=== PATIENT | female | born 1995 | race Caucasian/White ===

== ENCOUNTER 2020-12-25 09:36 | Emergency (ER) | payer SELFPAY ==
[2020-12-25 09:45] VITALS: BP 126/80; PULSE 88; RESP 16; TEMP 36.5; O2SAT 99
--- NOTE | 2020-12-25 10:25 | ED.URI ---
HPI - URI/Sore Throat General Chief Complaint: Upper Respiratory Infection Stated Complaint: SINUS INFECTION Time Seen by Provider: 12/25/20 10:15 Source: patient and RN notes reviewed Mode of arrival: ambulatory Limitations: no limitations History of Present Illness HPI Narrative: Patient presents today with a 2-day history of sinus pressure, postnasal drip, ear pressure, subjective fever, bloody yellow nasal drainage. She believes she has a sinus infection. History of sinus surgery with turbinate reduction and septoplasty 3 years ago. She has been taking Sudafed with mild relief. States this is her first sinus infection since her surgery. No recent antibiotic use. MD elicited complaint: sinus pain Related Data Allergies Allergy/AdvReac Type Severity Reaction Status Date / Time No Known Allergies Allergy Mild Verified 12/25/20 10:23 Review of Systems Review of Systems: Narrative: CONSTITUTIONAL: Denies body aches, chills, or sweats. + Subjective fever EYES: Denies visual changes, redness, or discharge. ENT: Denies sore throat, or otalgia. + Sinus pressure, postnasal drip, ear pressure, nasal drainage CARDIOVASCULAR: Denies chest pain, palpitations, or edema. RESPIRATORY: Denies cough or dyspnea. GASTROINTESTINAL: Denies abdominal pain, nausea, vomiting, or diarrhea. GENITOURINARY: Denies dysuria or hematuria. SKIN: Denies rash, itching, or wounds. MUSCULOSKELETAL: Denies back pain, joint pain, or myalgia. NEUROLOGIC: Denies headache, numbness, tingling, or weakness. PSYCH: Denies depression or anxiety. [facility] Surgical History Surgical History (Updated 12/25/20 @ 10:28 by Safia Leon, [facility], ) History of sinus surgery Comments At time of signature, I have reviewed and agree with nursing past medical, surgical, social and family history unless otherwise noted. Please see nursing chart for further information. There is no relevant family history pertinent to the presenting complaint Exam Narrative: Exam Narrative: GENERAL: Well-appearing, well-nourished, and in no acute distress. HEAD: Normocephalic, atraumatic. EYES: EOMI. No redness or drainage. Conjunctivae normal. ENT: Mucous membranes pink and moist. Nares clear. No rhinorrhea. TMs normal bilaterally. Throat normal. Uvula midline. NECK: Normal AROM. Supple. No lymphadenopathy. CHEST: No respiratory distress. Clear to auscultation. HEART: Regular rate and rhythm. No murmur appreciated. Normal peripheral pulses. EXTREMITIES: Normal range of motion. No edema. SKIN: Warm, dry, no rash. Capillary refill normal. Normal skin turgor. NEURO: No focal deficits. Alert and oriented x3. Gait steady. PSYCH: Normal affect. No signs of depression or anxiety. Course Vital Signs Vital signs: Vital Signs Temperature 97.7 F 12/25/20 09:45 Pulse Rate 88 12/25/20 09:45 Respiratory Rate 16 12/25/20 09:45 Blood Pressure 126/80 12/25/20 09:45 Pulse Oximetry 99 12/25/20 09:45 Temperature 97.7 F 12/25/20 09:45 Pulse Rate 88 12/25/20 09:45 Respiratory Rate 16 12/25/20 09:45 Blood Pressure 126/80 12/25/20 09:45 Pulse Oximetry 99 12/25/20 09:45 Reviewed. Pt has been instructed to follow up with her PCP regarding her elevated blood pressure today. MDM - URI/Sore Throat Differential Diagnosis Differential diagnosis: Likely upper respiratory infection, otitis media, sinusitis and viral infection Critical Care Time Critical Care Time Critical Care Time: No Discharge Plan Discharge Clinical Impression: Sinusitis Qualifiers: Sinusitis location: unspecified location Chronicity: acute Recurrence: not specified as recurrent Qualified Code(s): J01.90 - Acute sinusitis, unspecified Patient Disposition: Home, Self-Care Condition: Stable Instructions: Antibiotic Form, Sinusitis (ED) Additional Instructions: Please take the amoxicillin as prescribed until gone. Continue your Sudafed. Follow-up with your PCP in 3 to 4 day
== END 2020-12-25 10:31 | disposition home or self-care (01) ==
PROVIDERS: Emergency Provider Nurse Practitioner
DX: J01.90 Acute sinusitis, unspecified (principal); R03.0 Elevated blood-pressure reading, without diagnosis of hypertension
CPT/HCPCS: 99213; G0463

== ENCOUNTER 2024-07-04 10:50 | Emergency (ER) | payer BC, SELFPAY ==
[2024-07-04 11:04] VITALS: BP 123/75; PULSE 66; RESP 16; TEMP 36.6; O2SAT 98
--- NOTE | 2024-07-04 12:17 | ED.SKABFB ---
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 She reports that she began using metal nipple Rendon about 1 week ago, now has a burning itchy rash to both nipples. She denies any injury or trauma. She voices no other concerns or complaints today. Related Data Home Medications Medication Instructions Recorded Confirmed sertraline 50 mg tablet mg 07/04/24 Allergies Allergy/AdvReac Type Severity Reaction Status Date / Time No Known Allergies Allergy Mild Verified 07/04/24 11:15 Review of Systems Review of Systems: All systems reviewed & are unremarkable except as noted in HPI and below Constitutional: Constitutional: Reports no additional constitutional complaints ENT: Reports system reviewed and no additional complaints, except as documented Cardiovascular: Cardiovascular: Reports no additional cardiovascular complaints Respiratory: Respiratory: Reports no additional respiratory complaints Gastrointestinal: Gastrointestinal: Reports no additional gastrointestinal complaints Integumentary/Breasts: Skin/Breast: Reports system reviewed and no additional complaints, except as docu and Reports as per HPI [facility] Surgical History Surgical History History of sinus surgery Comments At the time of my signature, I reviewed and agree with the nursing past medical, surgical, social, and family history. There is no relevant family history pertinent to the patient complaint. Exam Const: General: cooperative, no acute distress, alert and awake Orientation/consciousness: oriented to person, oriented to place and oriented to time HENMT: Head: normal to inspection Resp: Effort & Inspection: normal respiratory effort and able to speak in complete sentences Auscultation: clear to auscultation bilaterally, no crackles, no rales, no rhonchi and no wheezes Cardio: Palpation: normal PMI Rate: regular rate Rhythm: regular rhythm Heart sounds: S1 normal heart sound present and S2 normal heart sound present Skin: Rashes: rashes noted patches bilateral breast Neuro: General: oriented to person, oriented to place and oriented to time Cranial nerves: Yes CN's II-XII intact bilaterally Psych: Appearance: grossly normal Thought process: Normal thought process present Insight: Good insight present (Psych) Judgement: Good judgement present (Psych) Course Course Level of Care: Express Care Visit Vital Signs Vital signs: Vital Signs Temperature 97.9 F 07/04/24 11:04 Pulse Rate 66 07/04/24 11:04 Respiratory Rate 16 07/04/24 11:04 Blood Pressure 123/75 07/04/24 11:04 Pulse Oximetry 98 07/04/24 11:04 Oxygen Delivery Room Air 07/04/24 11:04 Temperature 97.9 F 07/04/24 11:04 Pulse Rate 66 07/04/24 11:04 Respiratory Rate 16 07/04/24 11:04 Blood Pressure 123/75 07/04/24 11:04 Pulse Oximetry 98 07/04/24 11:04 Oxygen Delivery Room Air 07/04/24 11:04 Reviewed MDM - Skin/Abscess/Foreign Bdy MDM Narrative Medical decision making narrative: Rash consistent with yeast dermatitis. Treat topically. Follow with primary care provider. Emergency department for new or worse symptoms. Discharge instructions reviewed with patient, as well as provided in writing per nursing staff. The instructions also include specific and strict return/GO TO THE ER as well as f/u information. All questions have been answered, and the patient deny any further questions with discharge and discharge plan. Some parts of this dictation were generated by voice recognition software and may contain typographical and/or grammatical inaccuracies. Differential Diagnosis Differential diagnosis: Likely cellulitis, eczema and contact dermatitis Medical Records Attestation: I reviewed the patient's medical records. Discharge Plan Discharge Clinical Impression: Yeast dermatitis Patient Disposition: Home, Self-Care Condition: Stable Instructions: Antibiotic Form, Skin Yeast Infection (ED) Additional Instructions: Use medications as prescribed. Follow with primary care provider. Emergency department for new or worse symptoms Patient Language: Frisian Prescriptions: New nystatin 100,000 unit/gram ointment 1 applic topical QID 14 Days Qty: 30 0RF No Action sertraline 50 mg tablet Follow-up/Referrals: PHYSICIAN,EMERGENCY MANAGEMENT CONSULTANT [Primary Care Provider] - Stand Alone Forms: Work/School Release IP Time of Disposition: 12:25
== END 2024-07-04 12:35 | disposition home or self-care (01) ==
PROVIDERS: Emergency Provider Nurse Practitioner Family
DX: B37.2 Candidiasis of skin and nail (principal)
CPT/HCPCS: 99213; G0463

== ENCOUNTER 2025-01-24 19:02 | Emergency (ER) | payer BC, SELFPAY ==
--- NOTE | ~2025-01-24 | CT_ITS ---
CT ANGIOGRAM NECK AND HEAD History: Headache. Technique: Axial noncontrast imaging of the brain was performed. Serial spiral axial images through t he head and neck were then obtained during arterial phase IV injection of 100 cc of Omnipaque 350. 3- D postprocessing and MIP images were then reconstructed on the remote workstation. Dose reduction kishore hnique was used on this scan by utilizing automated exposure control and iterative reconstruction kishore hnique. The dose-length product (DLP) was 1485.56 mGy-cm. CTA neck findings: Bilateral vertebral arteries are patent. Bilateral common carotid, internal carot id, and external carotid arteries are patent. No large vessel occlusion or stenosis. No aneurysm. The proximal right internal carotid artery demonstrates 0% stenosis relative to the normal distal artery lumen diameter. The proximal left internal carotid artery demonstrates 0% stenosis relative to the n ormal distal artery lumen diameter. CTA head findings: Distal vertebral arteries, basilar artery, and posterior cerebral arteries are pat ent. Distal internal carotid arteries, middle cerebral arteries, and anterior cerebral arteries are p atent. No large vessel occlusion or stenosis. No aneurysm. Axial noncontrast images of the brain is unremarkable. No acute infarct, intracranial hemorrhage or m ass lesion identified. No mass effect or midline shift. Palmer-white differentiation intact. Ventricles and subarachnoid spaces are normal. Paranasal sinuses and mastoid air cells are clear. Calvarium int act. Impression: Normal exam. Reviewed, dictated and finalized at location M. Impression: Normal exam.
--- NOTE | ~2025-01-24 | XR_ITS ---
XR chest 2V Ordering provider: Jarett Edgar MD History: 29 years Female with . cp . Comparison: March 17, 2017 FINDINGS: MEDIASTINUM: The cardiac silhouette is not enlarged. LUNGS: No infiltrates, effusions or pneumothorax. OTHER: No free air under the diaphragm. IMPRESSION: No acute cardiopulmonary pathology. Reviewed, dictated and finalized at location A.
--- NOTE | 2025-01-24 19:05 | ECG_ITS ---
Test Date: 2025-01-24 19:41:19 Measurements Intervals Mc[place]osh Rate: 115 P: 153 SC: 177 QRS: 140 QRSD: 92 T: -12 QT: 342 QTc: 475 Interpretive Statements SINUS TACHYCARDIA WITH OCCASIONAL VENTRICULAR PREMATURE COMPLEXES ARM LEADS REVERSED [INVERTED P AND QRS IN I] ABNORMAL RHYTHM ECG No previous ECG available for comparison Electronically Signed On 01-25-2025 12:41:15 CDT by Melchor Garcia M.D.
--- OUTSIDE RECORDS SUMMARY | 2025-01-24 19:05 | XMS_ITS | Clinical Summary ---
Author Organization [facility] [employer] Address [address] [place] [address] Care Team Providers Care Community Health Agent Name Role Phone Ike Marin MD Unavailable Ike Marin MD Unavailable Source Comments [facility],non-owned Affiliates and Associated Physician Practices is amultiple site organization consisting of ambulatory clinics and hospital sitesin [place], [place], [place] and [place]. This disclosure is being madepursuant to the Care Everywhere program and may not contain all information available regarding this patient. Last updated 18.[facility] [employer] Allergies No known active allergies Medications * Be aware that medications may not be up to date on this document. Alwaysverify current medications with the patient. Multiple Vitamins-Minera ls (MULTIVITAMIN GUMMIES WOMENS PO) Take 3 tablets by mouth once daily Active Multiple Vitamins-Minera ls (HAIR SKIN AND NAILS FORMULA PO) Take 2 tablets by mouth once daily Active busPIRone (BUSPAR) 10 MG tablet Take 1 (one) tablet by mouth 3 times daily as needed 30 tablet 4 05/21/2021 Active Fish Oil-Cholecalcif abraham (OMEGA-3 + VITAMIN D3 PO) Take 2 capsules by mouth once daily Active Active Problems Problem Noted Date Diagnosed Date H/O multiple concussions 02/01/2020 Gastroesophageal reflux disease without esophagi tis 02/01/2020 Generalized anxiety disorder 02/01/2020 Major Depression 02/01/2020 Immunizations Immunization Administration Dates Next Due DTaP VACCINE IM (6wk-6yrs) 11/12/1999,,07/09/1995,1994,03/06/1995 HEP B VACCINE, PED/ADOL 10/08/1995,01/28/1995, HIB VACCINE 03/19/1996, 5,05/07/1995,1994 Human Papilloma Virus Nine[place] lent Vaccine 12/05/2021,08/16/2021 MMR 11/12/2019,03/19/1996 POLIO IPV 11/12/1999,03/06/1995 POLIO OPV 03/19/1996,07/09/1995,05/07/1995 TDAP (7yrs+) 08/16/2021,04/13/2008 Family History Medical History Relation Name Comments CVA Father Hypertension Mother Relation Name Status Comments Father Mother Alive Social History Tobacco Use Types Packs/Day Years Used Date Smoking Tobacco: Never Smokeless Tobacco: Never Alcohol Use Standard Drinks/Week Comments Yes 0 (1 standard drink = 0.6 oz pur e alcohol) socially AUDIT-C Answer Date Recorded Q1: How often do you have a drink containing alc ohol? 2-3 times a week 02/01/2020 Q2: How many drinks containi ng alcohol do you have on a typical day when you are drinking? 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 Gender Identity Female 05/20/2021 1:42 PM CDT Sexual Orientation Straight 05/20/2021 1: 42 PM CDT Last Filed Vital Signs Vital Sign Reading Time Taken Comments Blood Pressure 118/76 12/05/2021 9:34 AM CDT Pulse 75 12/05/2021 9:34 AM CDT Temperature 36.4 C (97.6 F) 12/05/2021 9:34 AM CDT Respiratory Rate 16 12/05/2021 9:34 AM CDT Oxygen Saturation 100% 12/05/2021 9:34 AM CDT Inhaled Oxygen Concentration - - Weight 60.3 kg (133 lb) 12/05/2021 9:34 AM CDT Height 161.3 cm (5' 3.5) 12/05/2021 9:34 AM CDT Body Mass Index 23.19 12/05/2021 9:34 AM CDT Plan of Treatment Health Maintenance Due Date Last Done Comments HIV SCREENING 2009 HEPATITIS C SCREENING 12/12/2012 HPV VACCINE (3 - 3-dose series) 02/27/2022 12/05/2021, 08/16/2021 PAP SMEAR 10/18/2023 10/17/2020 COVID-19 VACCINE ( season) 2024 DEPRESSION SCREENING 07/27/2024 INFLUENZA VACCINE (#1) 2025 DTAP/TDAP/TD VACCINES (8 - Td or Tdap) 08/16/2031 08/16/2021, 04/13/2008, 11/12/1999, Additional history exists ZOSTER VACCINE (1 of 2) 2044 HEPATITIS B VACCINE Completed 10/08/1995, 01/28/1995, 1994 HIB VACCINE Completed 03/19/1996, 06/26, 05/07/1995, Additional history exists MENINGOCOCCAL (Group B) VACCINE SHARED DECISION-MAKING Aged Out No longer eligible based on patient's age to complete this topic MENINGOCOCCAL GROUPS A/C/Y/W VACCINE Aged Out No longer eligible based on patient's age to complete this topic PNEUMOCOCCAL VACCINE Aged Out No long er eligible based on patient's age to complete this topic Procedures Procedure Name Priority Date/Time Associated Diagnosis Comments PAP SMEAR REPORT ORDER 10/17/2020 from Last 3 Months or Most Recently Relevant to Health Maintenance Results * PAP SMEAR REPORT ORDER (10/17/2020) 10/17/2020 Narrative 10/17/2020 Ordered by an unspecified provider. us Scanned Document LAB - PATHOLOGY/CYTOLOGY ORDERA BLES Final Result from Last 3 Months or Most Recently Relevant to Health Maintenance Insurance ANTHEM Care Teams Community Health Agent Relationship Specialty Start Date End Date Ike Marin MD [address] [place] [id number] Obstetrics and Gynecology 02/01/20 Ike Marin MD [address] [place] [address] Obstetrics and Gynecology 08/07/20
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
--- OUTSIDE RECORDS SUMMARY | 2025-01-24 19:05 | XMS_ITS | Referral Summary ---
Author Organization [facility]EL [facility] Buildi ng D Address [address], [address] [place] [address] Care Team Providers Care Refrigeration Insulator Name Role Phone Esme Rico MD Primary Care Provider [phone] Sammi uDran MD Unavailable [phone] Allergies No known active allergies Medications PNV cmb 64-ajss-NQ-omega-3- dha 29 mg iron- 1 mg-200 mg combo pack Take by mouth Active hydrOXYzine (ATARAX) 50 mg tablet Take 1 tablet (50 mg total) by mouth every 6 (six) hours as needed for itching 40 tablet 1 4 Active lactic cpjx-zlmoor-taikzld um (Phexxi) 1.8-1-0.4 % gel vaginal gelIndications:Enco [...] Timing of Delivery: [] Post risks: [] Leaf Stamper [] Circumcision [] Method of contraception (if [...] 11/12/1999,03/06/1995 MMR 11/12/2019,03/19/1996 OPV 03/19/1996,07/09/1995,05/07/1995 Tdap 12/29/2023,08/16/2021,04/13/2008 Social History Tobacco Use Types Packs/Day Years [...] things needed for daily living? 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 Blood 08/10/2023 10:5 0 AM CABLEMAN 08/10/2023 11:41 AM CABLEMAN us Sammi Duran MD LAB MICROBIOLOGY - GENERAL ORDERABLES Final Result [facility] [address] Department [place] [address] from Last 3 Months or Most Recently Relevant to Health Maintenance Insurance ANTHEM ACCESS ANTHEM ACCESS ANTHEM ACCESS Advance Directives For more information, please contact: [phone] * Full Code (Latest Code Status on File) Date Activated Date Inactivated Comments 02/11/2024 11:34 AM 02/13/2024 10:04 PM * Full Code Date Activated Date Inactivated Comments 02/10/2024 11:50 AM 02/11/2024 11:34 AM Full CPR i n case of cardiopulmonary arrest Care Teams Refrigeration Insulator Relationship Specialty Start Date End Date Esme Rico MD [address] [place] [address] PCP - General Internal Medicine 04/21/23 Sammi Duran MD [address] [facility] [address] [place] [address] Consulting Physician Obstetrics and Gynecology 10/13/23
[2025-01-24 19:32] VITALS: BP 152/106; PULSE 108; RESP 20; TEMP 36.7; O2SAT 100
[2025-01-24 20:01] VITALS: BP 119/73; PULSE 101; RESP 18; TEMP 37.1; O2SAT 98
[2025-01-24 20:02] LABS: Hematocrit 43.0 % (37.0-47.0); Hemoglobin 14.4 g/dL (12.0-15.0); Immature Granulocyte Percent A 0.3 % (0-0.5); Lymphocytes Absolute Auto 2.43 K/mm3 (0.9-3.2); Mean Corpuscular HGB Conc 33.5 g/dl (32-36); Mean Corpuscular Hemoglobin 28.0 pg (26-34); Mean Corpuscular Volume 83.7 fl (80-100); Nucleated Red Blood Cells Absolute Auto 0.000 K/mm3 (0.0-0.012); Nucleated Red Blood Cells Perc 0.0 % (0.0-0.2); Platelet Count Result 380 k/mm3 (150-375); Red Blood Count 5.14 M/mm3 (4.2-5.4); White Blood Count 13.4 K/mm3 (4.5-10.0)
[2025-01-24 20:12] LABS: Alanine Aminotransferase 23 U/L (6-35); Albumin Level 5.0 g/dL (3.5-5.1); Alkaline Phosphatase 62 U/L (38-126); Anion Gap 13 mmol/L (4-12); Aspartate Amino Transferase 27 U/L (14-36); Bilirubin,Total 0.6 mg/dL (0.2-1.3); Blood Urea Nitrogen 11 mg/dL (7-17); Calcium 9.5 mg/dL (8.4-10.2); Carbon Dioxide 19 mmol/L (22-30); Chloride 105 mmol/L (98-107); Estimated CRCL calculation 126 ml/min; Estimated Glomerular Filt Rate > 60; Glucose 120 mg/dL (65-110); Lipase 46 U/L (23-300); Potassium 3.4 mmol/L (3.4-5.0); Sodium 137 mmol/L (137-145); Total Protein 9.2 g/dL (6.3-8.2)
[2025-01-24 20:13] LABS: INR 1.0; Partial Thromboplastin Time 32.3 Seconds (22.3-36.8); Prothrombin Time 13.5 Seconds (11.1-14.7)
[2025-01-24] MEDS: ASPIRIN 81 MG CHEWABLE TABLET 324 MG PO (20:16)
[2025-01-24 20:23] LABS: Troponin I < 0.012 ng/mL (0.000-0.034)
--- OUTSIDE RECORDS SUMMARY | 2025-01-24 20:57 | XMS_ITS | Referral Summary ---
Author Organization [facility] Buildi ng D Address [address], [address] [place] [address] Care Team Providers Care Social Work Program Coordinator Name Role Phone Esme Rico MD Primary Care Provider [phone] Sammi Duran MD Unavailable [phone] Allergies No known active allergies Medications PNV cmb 50-wvbn-RD-omega-3- dha 29 mg iron- 1 mg-200 mg combo pack Take by mouth Active hydrOXYzine (ATARAX) 50 mg tablet Take 1 tablet (50 mg total) by mouth every 6 (six) hours as needed for itching 40 tablet 1 4 Active lactic lgjb-wowvwu-sxmwdfw um (Phexxi) 1.8-1-0.4 % gel vaginal gelIndications:Enco [...] Timing of Delivery: [] Post risks: [] Easement Worker [] Circumcision [] Method of contraception (if [...] things needed for daily living? 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 Blood 08/10/2023 10:5 0 AM SPRAY RIG OPERATOR 08/10/2023 11:41 AM SPRAY RIG OPERATOR us Sammi Duran MD LAB MICROBIOLOGY - GENERAL ORDERABLES Final Result [facility] [address] Department [place] [address] from Last 3 Months or Most Recently Relevant to Health Maintenance Insurance ANTHEM ACCESS ANTHEM ACCESS ANTHEM ACCESS Advance Directives For more information, please contact: [phone] * Full Code (Latest Code Status on File) Date Activated Date Inactivated Comments 02/11/2024 11:34 AM 02/13/2024 10:04 PM * Full Code Date Activated Date Inactivated Comments 02/10/2024 11:50 AM 02/11/2024 11:34 AM Full CPR i n case of cardiopulmonary arrest Care Teams Social Work Program Coordinator Relationship Specialty Start Date End Date Esme Rico MD [address] [place] [address] PCP - General Internal Medicine 04/21/23 Sammi Duran MD [address] [facility] [address] [place] [address] Consulting Physician Obstetrics and Gynecology 10/13/23
--- OUTSIDE RECORDS SUMMARY | 2025-01-24 20:57 | XMS_ITS | Clinical Summary ---
Author Organization [facility]INEL Linda [facility] Buildi ng D Address [address], [address] [place] [address] Care Team Providers Care Pulper Operator Name Role Phone Esme Rico MD Primary Care Provider [phone] Sammi Duran MD Unavailable [phone] Allergies No known active allergies Medications PNV cmb 67-ikms-PU-omega-3- dha 29 mg iron- 1 mg-200 mg combo pack Take by mouth Active hydrOXYzine (ATARAX) 50 mg tablet Take 1 tablet (50 mg total) by mouth every 6 (six) hours as needed for itching 40 tablet 1 4 Active lactic eaqj-kkddiw-lxgeyte um (Phexxi) 1.8-1-0.4 % gel vaginal gelIndications:Enco [...] Timing of Delivery: [] Post risks: [] Java Software Architect [] Circumcision [] Method of contraception (if [...] things needed for daily living? 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 Blood 08/10/2023 10:5 0 AM FELT CUTTING MACHINE OPERATOR 08/10/2023 11:41 AM FELT CUTTING MACHINE OPERATOR us Sammi Duran MD LAB MICROBIOLOGY - GENERAL ORDERABLES Final Result [facility] [address] Department [place] [address] from Last 3 Months or Most Recently Relevant to Health Maintenance Insurance ANTHEM ACCESS ANTHEM ACCESS ANTHEM ACCESS Advance Directives For more information, please contact: [phone] * Full Code (Latest Code Status on File) Date Activated Date Inactivated Comments 02/11/2024 11:34 AM 02/13/2024 10:04 PM * Full Code Date Activated Date Inactivated Comments 02/10/2024 11:50 AM 02/11/2024 11:34 AM Full CPR i n case of cardiopulmonary arrest Care Teams Pulper Operator Relationship Specialty Start Date End Date Esme Rico MD [address] [place] [address] PCP - General Internal Medicine 04/21/23 Sammi Duran MD [address] [facility] [address] [place] [address] Consulting Physician Obstetrics and Gynecology 10/13/23
--- OUTSIDE RECORDS SUMMARY | 2025-01-24 20:57 | XMS_ITS | Clinical Summary ---
Author Organization [facility] [employer] Address [address] [place] [address] Care Team Providers Care Flower Cheniller Name Role Phone Ike Marin MD Unavailable Ike Marin MD Unavailable Source Comments [facility],non-owned Affiliates and Associated Physician Practices is amultiple site organization consisting of ambulatory clinics and hospital sitesin [place], [place], [place] and [place]. This disclosure is being madepursuant to the Care Everywhere program and may not contain all information available regarding this patient. Last updated 18.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
--- OUTSIDE RECORDS SUMMARY | 2025-01-24 20:57 | XMS_ITS | Clinical Summary ---
Author Organization [facility] Address [address] [place] [address] Care Team Providers Care Field Education Director Name Role Phone Agusto Cervantes MD Primary Care Provider [phone] Allergies Active Allergy Reactions Criticality Noted Date Comments Nifedipine Other (see comment) 01/24/2025 Palpitation, chest pain and almost went unconscious Medications sertraline (ZOLOFT) 50 MG tabletIndicatio ns:Anxiety and depression Take 1 tablet (50 mg total) by mouth daily. 30 tablet 1 01/24/2025 Active hydrOXYzine (ATARAX) 25 MG tabletIndicatio ns:Anxiety and depression Take 1 tablet (25 mg total) by mouth nightly at bedtime. 30 tablet 1 01/24/2025 Active Active Problems No known active problems Encounters Date Type Department Care Team Description 01/24/2025 11:00 AM CDT Office Visit [facility] Family & Internal Medicine [address] [address] Agusto Cervantes MD New Patient (Est care) 01/24/2025 Travel from Last 3 Months Immunizations Immunization Administration Dates Next Due Dtap (Acel-Immune) 11/12/1999,03/19/1996, 995,05/07/1995,03/06/1995 HPV GARDASIL 9-VALENT 12/05/2021,08/16/2021 Hepatitis B Pediatric 10/08/1995,01/28/1995,11/25 Hib (Generic) 03/19/1996,07/09/1995,05/07/1995 ,03/06/1995 MMR (MMRII) 11/12/2019,03/19/1996 Polio IPV (Ipol) 11/12/1999,03/06/1995 Polio Opv (Generic) 03/19/1996,07/09/1995,1994 Tdap (Generic) 08/16/2021,04/13/2008 Family History Medical History Relation Comments Depression Father Diabetes Father Early Hearing Loss Father Mental Health Father Stroke Father Heart Disease Maternal Grandmother from heart attack in her 50s. Hypertension Mother Mental Health Mother Arthritis Paternal Grandmother Diabetes Paternal Grandmother Hypertension Paternal Grandmother Stroke Paternal Grandmother Stroke Paternal Uncle Relation Status Comments Father Maternal Grandmother Mother Alive Paternal Grandmother Paternal Uncle Social History Tobacco Use Types Packs/Day Years Used Date Smoking Tobacco: Never Smokeless Tobacco: Never Tobacco Cessation:Counseling Given: No Alcohol Use Standard Drinks/Week Comments Yes 0 (1 standard drink = 0.6 oz pure alcohol) Drink maybe 2 glasses of wine or a beer once or twice a year. PHQ-2 Answer Date Recorded Patient Health Questionnaire-2 Score 3 01/24/2025 Comments No Sex and Gender Information Value Date Recorded Sex Assigned at Not on file Legal Sex Female 3:57 PM CDT Gender Identity Not on file Sexual Orientation Not on file Last Filed Vital Signs Vital Sign Reading Time Taken Comments Blood Pressure 150/92 01/24/2025 11:37 AM CDT Pulse 97 01/24/2025 10:56 AM CDT Temperature 36.9 C (98.5 F) 01/24/2025 10:56 AM CDT Respiratory Rate 16 01/24/2025 10:56 AM CDT Oxygen Saturation 99% 01/24/2025 10:56 AM CDT Inhaled Oxygen Concentration - - Weight 73.5 kg (162 lb) 01/24/2025 10:56 AM CDT Height 160 cm (5' 3) 01/24/2025 10:56 AM CDT Body Mass Index 28.7 01/24/2025 10:56 AM CDT Plan of Treatment Upcoming Encounters Date Type Department Care Team (Late st Contact Info) Description 01/25/2025 9:30 AM CDT Laboratory Only [facility] Family & Internal Medicine [address] [address] [place] [address] [place] [phone] 02/14/2025 11:40 AM CDT Office Visit [facility] Family & Internal Medicine - [place] [address] [place] [address] [place] [address] [place] [phone] Health Maintenance Due Date Last Done Comments Cervical Cancer Screening Pap Smear (Age 30 to 64) Every 3 Years 1994 Annual Physical 1997 Hepatitis C 2012 HPV Vaccines (3 - 3-dose series) 02/27/2022 12/05/2021, 08/16/2021 COVID-19 Vaccine ( season) 2024 Cervical Cancer Screening Pap with HPV Testing (Age 30 to 64) Every 5 Years 2024 Cervical Cancer Screening with HPV 2024 DTaP, Tdap and Td Vaccines (8 - Td or Tdap) 08/16/2031 08/16/2021, 04/13/2008, 11/12/1999, Additional history exists Hepatitis B Vaccines Completed 10/08/1995, 01/28/1995, 1994 PHQ-2 (Physician [place]) Completed 01/24/2025 Meningococcal B Vaccine Aged Out No l onger eligible based on patient's age to complete this topic Meningococcal Vaccine Aged Out No elmer gloria eligible based on patient's age to complete this topic Pneumococcal Vaccine: Pediatrics (0 to 5 Years) and At-Risk Patients (6 to 49 Years) Aged Out No longer eligible based on patient's age to complete this topic RSV Immunizations Under 20 Months Aged Out No longer eligible based on patient's age to complete this topic Insurance [facility] Care Teams Field Education Director Relationship Specialty Start [place] [address] [address] [place] [phone] PCP - General INTERNAL MEDICINE 01/20/25
--- OUTSIDE RECORDS SUMMARY | 2025-01-24 20:57 | XMS_ITS | Encounter Summary ---
Author Organization [facility] Address [address] [place] [address] Care Team Providers Care Model Dresser Name Role Phone Agusto Cervantes MD Primary Care Provider [phone] Encounter Details Date Type Department Care Team (Latest Contact Info) Description 01/24/2025 Travel Social History Tobacco Use Types Packs/Day Years [...] on file Sexual Orientation Not on file documented as of this encounter Functional Status * Over the past 2 weeks, how often have you been bothered by any of the following problems? Question Answer Date of Assessment Author Status Little interest or pleasure in doing things More than half the days 01/24/2025 11:51 AM CDT Jannie Villafuerte MA Active Feeling down, depressed, or hopeless Several days 01/24/2025 11:51 AM CDT Jannie Villafuerte MA Active Patient Health Questionnaire-2 Score 3 01/24/2025 11:51 AM CDT Jannie Villafuerte MA Active * Question Answer Date of Assessment Author Status Trouble falling or staying asleep, or sleeping too much Nearly every day 01/24/2025 11:51 AM CDT Jannie Villafuerte MA Active Feeling tired or having little energy Several days 01/24/2025 11:51 AM CDT Jannie Villafuerte MA Active Poor appetite or overeating Not at all 01/24/2025 11:51 AM CDT Jannie Villafuerte MA Active Feeling bad about yourself - or that you are a failure or have let yourself or your family down Several days 01/24/2025 11:51 AM CDT Jannie Villafuerte MA Active Trouble concentrating on things, such as reading the newspaper or watching television Several days 01/24/2025 11:51 AM CDT Jannie Villafuerte MA Active Moving or speaking so slowly that other people could have noticed? Or the opposite - being so fidgety or restless that you have been moving around a lot more than usual. Nearly every day 01/24/2025 11:51 AM MARLENYT Jannie Villafuerte MA Active Thoughts that you would be better off or hurting yourself in some way Not at all 01/24/2025 11:51 AM CDT Jannie Villafuerte MA Active Patient Health Questionnaire-9 Score 12 01/24/2025 11:51 AM CDT Jannie Villafuerte MA Active * If you checked off any problems on this questionnaire so far, Question Answer Date of Assessment Author Status How difficult have these problems made it for you to do your work, take care of things at home, or get along with other people? Very difficult 01/24/2025 11:51 AM CDT Jannie Villafuerte MA Active * Over the last 2 weeks, how often have you been bothered by any of the following problems? Question Answer Date of Assessment Author Status Feeling nervous, anxious, or on edge 3 01/24/2025 11:52 AM CDT Jannie Villafuerte MA Ac tive Not being able to stop or control worrying 3 01/24/2025 11:52 AM CDT Jannie Villafuerte MA A ctive Worrying too much about different things 2 01/24/2025 11:52 AM MARLENYT Jannie Villafuerte MA A ctive Trouble relaxing 2 01/24/2025 11:52 AM CDT Jannie Lawson MA Active Being so restless that it is hard to sit still 2 01/24/2025 11:52 AM CDT Jannie Villafuerte MA Active Becoming easily annoyed or irritable 2 01/24/2025 11:52 AM CDT Jannie Villafuerte MA Ac tichris Feeling afraid as if something awful might happen 3 01/24/2025 11:52 AM CDT Jannie Villafuerte MA Ac tive MARIAN-7 Total Score 17 01/24/2025 11:52 AM CDT Jannie Howell MA Active documented as of this encounter Plan of Treatment Upcoming Encounters Date Type Department Care Team (Late st Contact Info) Description 01/25/2025 9:30 AM CDT Laboratory Only [facility] Family & Internal Medicine [facility] [address] [place] [address] [place] [address] [facility] [employer] [address] [phone] 02/14/2025 11:40 AM CDT Office Visit [facility] Family & Internal [facility] [address] [place] [address] [place] [address] [facility] [employer] [address] [place] [phone] documented as of this encounter Visit Diagnoses Not on filedocumented in this encounter Additional Health Concerns Assessment Noted Time PHQ-9 Depression Total Score: 12 025 11:51 AM CDT documented as of this encounter Care Teams Model Dresser Relationship Specialty Start [place] [address] [facility] [employer] [address] [place] [address] PCP - General INTERNAL MEDICINE 01/20/25 documented as of this encounter
--- OUTSIDE RECORDS SUMMARY | 2025-01-24 20:57 | XMS_ITS | Encounter Summary ---
Author Organization [facility] Address [address] [place] [address] Care Team Providers Care Geoint Analyst Name Role Phone Agusto Cervantes MD Primary Care Provider [phone] Reason for Referral * Consultation (Routine) - New Request Specialty Diagnoses / Procedures Referred By Mekhi mendosa Referred To Contact PSYCHOLOGY Diagnoses Anxiety and depression Procedures OFFICE/OUTPATIENT NEW LOW MDM 30-44 MINUTES OFFICE/OUTPT VISIT,NEW,LEVL IV OFFICE/OUTPT VISIT,NEW,LEVL V OFFICE/OUTPT VISIT,EST,LEVL III OFFICE/OUTPT VISIT,EST,LEVL IV OFFICE/OUTPT VISIT,EST[place] [address] [facility] [address] [place] [address] Phone: tel: fax: Referral ID Status Reason Start Date Expiration Date Visits Requested Visits Authorized [id number] New Request Specialty Services 01/24/2025 02/23/2026 1 1 Reason for Visit * Reason Comments New Patient Est care Encounter Details Date Type Department Care Team (Late st Contact Info) Description 01/24/2025 11:00 AM CDT Office Visit [facility] Family & Internal Medicine [address] [address] [place] [address] [employer] [address] [place] [address] New Patient (Est care) Social History Tobacco Use Types Packs/Day Years [...] on file documented as of this encounter Last Filed Vital Signs Vital Sign Reading [...] Mass Index 28.7 01/24/2025 10:56 AM CDT documented in this encounter Functional Status * Over the [...] Nearly every day 01/24/2025 11:51 AM CDT Janine Villafuerte MA Active Feeling tired or having [...] way Not at all 01/24/2025 11:51 AM MARLENYT Jannie Villafuerte MA Active Patient Health Questionnaire-9 [...] other people? Very difficult 01/24/2025 11:51 AM MARLENYT Jannie Villafuerte MA Active * Over the [...] AM CDT Jannie Villafuerte MA Ac tive Feeling afraid as if something awful might happen 3 01/24/2025 11:52 AM CDT Jannie Villafuerte MA Ac tive MARIAN-7 Total Score 17 01/24/2025 11:52 AM CDT Jannie Howell MA Active documented as of this encounter Plan of Treatment Upcoming Encounters Date Type Department Care Team (Late st Contact Info) Description 01/25/2025 9:30 AM CDT Laboratory Only [facility] Family & Internal Medicine [address] [address] [place] [address] [facility] [address] [phone] 02/14/2025 11:40 AM CDT Office Visit [facility] Family & Internal [address] [address] [place] [address] [facility] [address] [place] [phone] Scheduled Orders Name Type Priority Associated Diagnoses Orde r Schedule COMPREHENSIVE METABOLIC PANEL Lab Routine Encounter to establish care with new provider Anxiety and depression Expected: 01/24/2025, Expires: 01/24/2026 CBC W/DIFF AUTOMATED Lab Routine Encounter to establish care with new provider Anxiety and depression Expected: 01/24/2025, Expires: 01/24/2026 LIPID PANEL Lab Routine Encounter to establish care with new provider Expected: 01/24/2025, Expires: 01/24/2026 TSH W/REFLEX Lab Routine Screening for thyroid disorder Expected: 01/24/2025, Expires: 01/24/2026 HEMOGLOBIN, GLYCOSYLATED Lab Routine Screening for diabetes mellitus (DM) Expected: 01/24/2025, Expires: 01/24/2026 Scheduled Referrals Name Type Priority Associated Diagnoses Orde r Schedule Ambulatory Referral to Psychology Referral Routine Anxiety and depression Ordered: 01/24/2025 documented as of this encounter Visit Diagnoses Diagnosis Encounter to establish care with new provider- Primary Elevated BP without diagnosis of hypertension Anxiety and depression Dysthymic disorder Screening for thyroid disorder Screening for diabetes mellitus (DM) Screening for diabetes mellitus documented in this encounter Additional Health Concerns Assessment Noted Time PHQ-9 Depression Total Score: 12 025 11:51 AM CDT documented as of this encounter Care Teams Geoint Analyst Relationship Specialty Start [place] [address] [phone] PCP - General INTERNAL MEDICINE 01/20/25 documented as of this encounter
--- NOTE | 2025-01-24 21:16 | ED_ITS ---
HPI - Chest Pain General Chief Complaint: Chest Pain Stated Complaint: high BP Time Seen by Provider: 01/24/25 20:29 History of Present Illness HPI narrative: 29-year-old 101 right hand dominant female presents with report of chest pain. Patient had preeclampsia with severe features requiring delivery of baby at 34 weeks by induction approximately 11.5 months ago, 02/11/24. She did not have diagnosis hypertension afterwards. Was at her primary care physician today, Johnnie Kamara and her blood pressure was noted to be 165/92. After this, she developed chest tightness and left arm pain and tingling although that has since improved. No shortness of breath. Patient was there because she has been having headaches, left frontal and occuring daily/near daily for 2-3 weeks. Not on anticoagulation. No house members with similar symptoms and house has CO detectors. No recent trauma but Hx of TBI 24 yo. No imaging for this headache. Described as a throbbing pain, not sharp. No photophobia/phonophobia. CHest pain felt like a heavy heart beat. Quit smoking marijuana 2-3 weeks ago. Family history with HTN and CVAs. Patient had a syncopal event with vomiting during lab draw here. Cardiac risk factors HTN:0 HLD:0 DM:0 Obese:0 Smoker:0 Personal history OR/TIA/CVA: 0 Fam Hx OR in first degree relative <65yo:0 Related Data Home Medications ?Medication ?Instructions ?Recorded ?Confirmed ?Last Taken ?Type sertraline 50 mg tablet mg 07/04/24 Unknown History Allergies Allergy/AdvReac Type Severity Reaction Status Date / Time nifedipine (From Procardia) Allergy Severe Fainting Verified 01/24/25 19:05 [facility] Past Medical History Medical History History of traumatic brain injury 24yo History of pre-eclampsia 2023 Right hand dominant Surgical History Surgical History History of sinus surgery Family History Family History Grandparent Acute myocardial infarction 50s Father Cerebrovascular accident mid/early 60s Mother Hypertension Other Cerebrovascular accident, Onset Age: 70 Social History Social History Substance use: former Substance use type: marijuana Last use: quit December 2024 Exam 2 Narrative: GENERAL: Well-appearing, well-nourished, and in no acute distress. HEAD: Normocephalic, atraumatic. EYES: Non injected, non icteric ENT: Nares clear, no rhinorrhea or epistaxis. Gross auditory acuity intact. NECK: Supple. No meningismus. CHEST: Speaking in full sentences. No respiratory distress. HEART: Regular rate and rhythm. . ABDOMEN: Soft, nondistended. No rigidity or guarding. Not peritoneal EXTREMITIES: Normal range of motion. No lower extremity edema. SKIN: Warm, dry, no rash. NEURO: No focal deficits. Alert and oriented. Answering questions. Following commands. Normal speech without aphasia or dysarthria. PSYCH: Normal mood and affect. Course Vital Signs Vital signs: Vital Signs Temperature 98.1 F 01/24/25 19:32 Pulse Rate 108 H 01/24/25 19:32 Respiratory Rate 20 01/24/25 19:32 Blood Pressure 152/106 H 01/24/25 19:32 Pulse Oximetry 100 01/24/25 19:32 Oxygen Delivery Room Air 01/24/25 19:32 Temperature 98.7 F 01/24/25 20:01 Pulse Rate 101 H 01/24/25 20:01 Respiratory Rate 18 01/24/25 20:01 Blood Pressure 119/73 01/24/25 20:01 Pulse Oximetry 98 01/24/25 20:01 Oxygen Delivery Room Air 01/24/25 20:20 MDM - Chest Pain MDM Narrative Medical decision making narrative: Patient presents with report of CP she developed after being at PCP's today and having BP 165/92. CP was associated with left arm paresthesias. Patient had been at PCP due to daily/near daily headaches for 2-3 weeks. History of preeclampsia but no prior or post diagnosis of HTN. In the emergency department she is afebrile with vital signs notable for hypertension and tachycardia. The hypertension resolved upon repeat. Leukocytosis, thrombocytosis. No prior for comparison. test negative. Urinalysis without signs of infection but it does reflex to culture. HEART SCORE History 2 highly suspicious 1 moderately suspicious 0 slightly suspicious History score [address] depression/elevation not due to LBBB, LVH, or digoxin [address] depression but LBBB, LVH, nonspecific repolarization changes 0 normal ECG score 1 Age 2 >/= 65 1 45-64 0 <45 Age score 0 Risk factors (HTN, hypercholesterolemia, DM, obesity with BMI >30, current smoker or cessation </=3mo), positive fam hx with parent or sibling with CVD before age 65, atherosclerotic disease (prior OR, PCI/CABG, CVA/TIA, or peripheral arterial disease) 2 >/= 3 risk factors or history of atherosclerotic dz 1 - 1-2 risk factors 0 no known risk factors Risk factor score 0 Initial Troponin 2 >3 times normal limit 1 1-3 times normal limit 0 less than or equal to normal limit Troponin score 0 Total HEART Score 1. Repeat troponin normal. After obtaining the patient's history and performing a physical exam, the headache is most likely due to benign etiology. The neurological examination is non-focal, there are no high-risk features on history, vital signs are stable, and the patient is non-toxic appearing. The Ddx for the patient's headache is tension headache, migraine, or other headache of non-emergent etiology. Unlikely SAH: headache is non-thunderclap. Headache is non-maximal at onset and present 2-3 weeks Unlikely subdural/epidural hematoma: no history of trauma, no anticoagulation Unlikely meningitis: afebrile, no meningismus, no photophobia Unlikely temporal arteritis: pt <60 years old. Unlikely carbon monoxide poisoning: no other house members with similar symptoms There is a significant delay in patient's imaging resulting as it was obtained before midnight but not read and not immediately pushed to [facility]. The patient's headache was treated symptomatically with ketorolac, benadryl compazine. Upon reevaluation, she states she is feeling much better. Will give 1 time dose of dexamethasone as this has been shown to reduce the occurrence of rebound/bounce-back headache. Patient has had intermittent elevated blood pressures per review of the log on monitor (145/96 on most recent) but we discussed that the diagnosis of hypertension will not be made in the emergency department due to the multiple reasons/factors that may be contributing. She will be discharged with strict return precautions and instructions to follow up with their PCP. Prescribed OTC analgesics. Differential Diagnosis Differential diagnosis: Likely stable angina, unstable angina pectoris, atypical chest pain, st elevation myocardial infarction, costochondritis, chest pain, biliary colic and other (anxiousness) Lab Data Attestation: I reviewed the patient's lab results. 01/24/25 19:49 01/24/25 19:49 Labs: Lab Results 01/24/25 01/24/25 01/24/25 Range/Units 19:49 19:55 21:33 WBC 13.4 H (4.5-10.0) K/mm3 RBC 5.14 (4.2-5.4) M/mm3 Hgb 14.4 (12.0-15.0) g/dL Hct 43.0 (37.0-47.0) % MCV 83.7 (80-100) fl MCH 28.0 (26-34) pg MCHC 33.5 (32-36) g/dl RDW 12.1 (11.5-14.5) % Plt Count 380 H (150-375) k/mm3 MPV 9.1 (7.4-10.4) fl Immature Gran % (Auto) 0.3 (0-0.5) % Neut % (Auto) 75.4 H (45.5-73.1) % Lymph % (Auto) 18.1 L (18.3-44.2) % Perry % (Auto) 5.4 (2.6-8.5) % Eos % (Auto) 0.4 (0-4.4) % Baso % (Auto) 0.4 (0.2-1.2) % Lymph # (Auto) 2.43 (0.9-3.2) K/mm3 Perry # (Auto) 0.7 H (0.1-0.6) K/mm3 Eos # (Auto) 0.1 (0-0.3) K/mm3 Baso # (Auto) 0.1 (0.0-0.1) K/mm3 Abs Immat Gran (auto) 0.04 H (0.00-0.031) K/mm3 Absolute Neuts (auto) 10.1 H (1.3-6.7) K/mm3 Absolute Nucleated RBC 0.000 (0.0-0.012) K/mm3 Nucleated RBC % 0.0 (0.0-0.2) % PT 13.5 (11.1-14.7) Seconds INR 1.0 APTT 32.3 (22.3-36.8) Seconds Sodium 137 (137-145) mmol/L Potassium 3.4 (3.4-5.0) mmol/L Chloride 105 (98-107) mmol/L Carbon Dioxide 19 L (22-30) mmol/L Anion Gap 13 H (4-12) mmol/L BUN 11 (7-17) mg/dL Creatinine 0.52 L (0.7-1.0) mg/dL Estim Creat Clear Calc 126 ml/min Estimated GFR > 60 (59 - ) Glucose 120 H (65-110) mg/dL POC Capillary Glucose 137 H (65-105) mg/dl Calcium 9.5 (8.4-10.2) mg/dL Total Bilirubin 0.6 (0.2-1.3) mg/dL AST 27 (14-36) U/L ALT 23 (6-35) U/L Alkaline Phosphatase 62 (38-126) U/L Troponin I < 0.012 (0.000-0.034) ng/mL Total Protein 9.2 H (6.3-8.2) g/dL Albumin 5.0 (3.5-5.1) g/dL Lipase 46 (23-300) U/L Urine Color Yellow (Yellow) Urine Appearance Clear (Clear) Urine pH 5.0 (5.0-9.0) Ur Specific [place] 1.031 (1.001-1.035) Urine Protein 1+ H (Negative) mg/dL Urine Glucose (UA) Negative (Negative) mg/dL Urine Ketones 2+ H (Negative) mg/dL Ur Blood (Man) Negative (Negative) Urine Nitrate Negative (Negative) Urine Bilirubin Negative (Negative) Urine Urobilinogen 1.0 (<2.0) mg/dL Add Ur Microanalysis Reviewed Leukocyte Esterase Rfl Negative (Negative) BRANDEN/UL Urine RBC 0-2 (0-2) /hpf Urine WBC 6-10 H (0-3) /hpf Ur Squamous Epith Cells Occasional (Few) /hpf Urine Bacteria None seen /hpf Urine Casts 3-5 Urine Mucus Present /lpf POC Urine HCG, Qual (Negative) 01/24/25 01/24/25 Range/Units 21:39 22:44 WBC (4.5-10.0) K/mm3 RBC (4.2-5.4) M/mm3 Hgb (12.0-15.0) g/dL Hct (37.0-47.0) % MCV (80-100) fl MCH (26-34) pg MCHC (32-36) g/dl RDW (11.5-14.5) % Plt Count (150-375) k/mm3 MPV (7.4-10.4) fl Immature Gran % (Auto) (0-0.5) % Neut % (Auto) (45.5-73.1) % Lymph % (Auto) (18.3-44.2) % Perry % (Auto) (2.6-8.5) % Eos % (Auto) (0-4.4) % Baso % (Auto) (0.2-1.2) % Lymph # (Auto) (0.9-3.2) K/mm3 Perry # (Auto) (0.1-0.6) K/mm3 Eos # (Auto) (0-0.3) K/mm3 Baso # (Auto) (0.0-0.1) K/mm3 Abs Immat Gran (auto) (0.00-0.031) K/mm3 Absolute Neuts (auto) (1.3-6.7) K/mm3 Absolute Nucleated RBC (0.0-0.012) K/mm3 Nucleated RBC % (0.0-0.2) % PT (11.1-14.7) Seconds INR APTT (22.3-36.8) Seconds Sodium (137-145) mmol/L Potassium (3.4-5.0) mmol/L Chloride (98-107) mmol/L Carbon Dioxide (22-30) mmol/L Anion Gap (4-12) mmol/L BUN (7-17) mg/dL Creatinine (0.7-1.0) mg/dL Estim Creat Clear Calc ml/min Estimated GFR (59 - ) Glucose (65-110) mg/dL POC Capillary Glucose (65-105) mg/dl Calcium (8.4-10.2) mg/dL Total Bilirubin (0.2-1.3) mg/dL AST (14-36) U/L ALT (6-35) U/L Alkaline Phosphatase (38-126) U/L Troponin I < 0.012 (0.000-0.034) ng/mL Total Protein (6.3-8.2) g/dL Albumin (3.5-5.1) g/dL Lipase (23-300) U/L Urine Color (Yellow) Urine Appearance (Clear) Urine pH (5.0-9.0) Ur Specific [place] (1.001-1.035) Urine Protein (Negative) mg/dL Urine Glucose (UA) (Negative) mg/dL Urine Ketones (Negative) mg/dL Ur Blood (Man) (Negative) Urine Nitrate (Negative) Urine Bilirubin (Negative) Urine Urobilinogen (<2.0) mg/dL Add Ur Microanalysis Leukocyte Esterase Rfl (Negative) BRANDEN/UL Urine RBC (0-2) /hpf Urine WBC (0-3) /hpf Ur Squamous Epith Cells (Few) /hpf Urine Bacteria /hpf Urine Casts Urine Mucus /lpf POC Urine HCG, Qual Negative (Negative) Imaging Data Radiologist's impression: CTA Head Stat Rad: Precontrast imaging demonstrates no evidence for intracranial hemorrhage. No significant mass effect or midline shift. No cortical infarct. The reported history of prior CVAs not evident. Negative intracranial CTA examination. No critical stenosis or occlusion. No incidental findings CTA Neck Stat Rad: Negative cervical CTA examination. No significant stenosis or occlusion. No incidental findings ECG Data EKG #1: Attestation: I personally reviewed and interpreted this ECG as follows: ECG completion date: 01/24/25 ECG completion time: 19:41 Interpretation: Sinus tachycardia at a rate of 115 beats per minute. There is occasional PVC. Suspect lead reversal. MT interval 177. QRS 92. QT/QTC 342/410. Good R-wave progression across the precordial leads.. No T-wave inversions EKG #2: Attestation: I personally reviewed and interpreted this ECG as follows: ECG completion date: 01/24/25 ECG completion time: 23:06 Interpretation: Sinus tachycardia at a rate of 110 beats per minute. MT interval 202. QRS 91. QT/QTC 345/410. Good R-wave progression across the precordial leads. Incomplete RBBB given QRS less [id number]; RSR' M-shaped pattern in V1-V3; less appreciable are the wide, slurred S wave in lateral leads (I, aVL, V5-6). Slight ST depressions in V4-6 Discharge Plan Discharge Clinical Impression: Chest pain, Headache, Leukocytosis, Thrombocytosis, Elevated blood pressure reading without diagnosis of hypertension Patient Disposition: Home Condition: Stable Instructions: Antibiotic Form, Chest Pain (DC), General Headache (ED) Additional Instructions: Follow-up with your primary care physician for the chest pain, headaches, and to monitor blood pressure. Acetaminophen/Tylenol (maximum 4000 mg per day) is safe to take with NSAIDs (ibuprofen/Motrin) for pain relief. Return with any new or worsening symptoms . Patient Language: Kyrgyz Prescriptions: New ibuprofen 600 mg tablet 600 mg PO TID PRN (Reason: pain) Qty: 30 0RF acetaminophen 500 mg capsule 1,000 mg PO Q6H PRN (Reason: pain) Qty: 30 0RF No Action sertraline 50 mg tablet nystatin 100,000 unit/gram ointment 1 applic topical QID 14 Days Qty: 30 0RF Follow-up/Referrals: Johnnie Woods [Other] (patient's stated PCP) UNKNOWN,DOCTOR [Primary Care Provider] - Stand Alone Forms: Work/School Release IP Time of Disposition: 03:24
[2025-01-24 21:41] LABS: BEDSIDEPREGUCG Negative (Negative)
[2025-01-24] MEDS: ACETAMINOPHEN 500 MG TABLET 1000 MG PO (21:53)
[2025-01-24 21:58] LABS: Add Urine Microscopic? YES; Appearance Urine Clear (Clear); Glucose Urine UA Negative (Negative); Leukocyte Esterase Ur Negative LEU/UL (Negative); Need Manual Microscopic Reviewed; Nitrate Urine Negative (Negative); Specific Grav Ur 1.031 (1.001-1.035)
--- NOTE | 2025-01-24 22:49 | ECG_ITS ---
Test Date: 2025-01-24 23:06:51 Measurements Intervals [place] Rate: 110 P: 56 MS: 202 QRS: 34 QRSD: 91 T: 41 QT: 345 QTc: 467 Interpretive Statements SINUS TACHYCARDIA POSSIBLE LEFT ATRIAL ENLARGEMENT [-0.1mV P-WAVE IN V1/V2] LONG QT INTERVAL NONSPECIFIC ST & T-WAVE ABNORMALITY ABNORMAL RHYTHM ECG No previous ECG available for comparison Electronically Signed On 01-25-2025 12:46:15 CDT by Melchor Garcia M.D.
[2025-01-24 23:14] LABS: Troponin I < 0.012 ng/mL (0.000-0.034)
[2025-01-24] MEDS: SODIUM CHLORIDE 0.9% IV 1,000 ML 999 ML IV CONT (23:16)
[2025-01-25] MEDS: KETOROLAC 15 MG/ML VIAL (*BKC) IV PUSH (02:58)
[2025-01-25] MEDS: PROCHLORPERAZINE EDISYLATE 10 MG/2 ML VIAL 5 MG IV PUSH (02:59)
== END 2025-01-25 03:38 | disposition home or self-care (01) ==
PROVIDERS: Student in an Organized Health Care Education/Training Program; Emergency Provider Student in an Organized Health Care Education/Training Program
DX: R07.9 Chest pain, unspecified (principal); R51.9 Headache, unspecified; D72.829 Elevated white blood cell count, unspecified; D75.839 Thrombocytosis, unspecified; R03.0 Elevated blood-pressure reading, without diagnosis of hypertension; Z87.820 Personal history of traumatic brain injury; R00.0 Tachycardia, unspecified; I49.3 Ventricular premature depolarization; I45.81 Long QT syndrome; R94.31 Abnormal electrocardiogram [ECG] [EKG]
CPT/HCPCS: 36415; 70496; 70498; 71046; 80053; 81001; 81025; 82948; 83690; 84484; 85025; 85610; 85730; 87086; 93005; 96361; 96374; 96375; 99284; A9270; J0780; J1200; J1885; J7030; J8540; Q9967